=== PATIENT | female | born 1975 | race American Indian/Alaskan Native ===

== ENCOUNTER 2016-10-08 18:53 | Emergency (ER) | payer OTHER ==
[2016-10-08] MEDS ORDERED: ATROVENT IH ONE ×2 (19:10→22:20)
[2016-10-08] MEDS ORDERED: PROVENTIL IH ONE ×2 (19:10→22:20)
[2016-10-08 19:49] LABS: Basophils % (Auto) 0.8 % (0.0-1.8); Eosinophils % (Auto) 0.3 % (0.0-4.3); Hematocrit 42.3 % (30.3-42.9); Hemoglobin 14.4 gm/dl (10.1-14.3); Mean Corpuscular HGB Conc 34 % (30-34); Mean Corpuscular Hemoglobin 32 pg (28-32); Mean Corpuscular Volume 93 fl (79-97); Platelet Count 190 K/mm3 (140-440); Red Blood Count 4.55 M/mm3 (3.65-5.03); Red Cell Distribution Width 13.3 % (13.2-15.2); White Blood Count 5.8 K/mm3 (4.5-11.0)
[2016-10-08 20:01] LABS: BUN/Creatinine Ratio 7.14; Blood Urea Nitrogen 5 mg/dL (7-17); Calcium 9.5 mg/dL (8.4-10.2); Carbon Dioxide 26 mmol/L (22-30); Chloride 99.5 mmol/L (98-107); Glucose 111 mg/dL (65-100); Potassium 4.1 mmol/L (3.6-5.0); Sodium 141 mmol/L (137-145)
[2016-10-08 20:34] LABS: Anion Gap 20 mmol/L
[2016-10-08] MEDS ORDERED: NACL 0.9% 1000 ML 1,000 ML IV ONE (22:20)
[2016-10-08] MEDS ORDERED: TYLENOL PO ONE (22:20)
[2016-10-08] MEDS ORDERED: TORADOL IV ONE (22:20)
[2016-10-08] MEDS ORDERED: ZOFRAN IV ONE (22:20)
--- NOTE | 2016-10-08 22:22 | Emergency Department Report ---
ED General Adult HPI - General Chief complaint: Dyspnea/Respdistress Stated complaint: ASTHMA Time Seen by Provider: 10/08/16 22:07 Source: patient, RN notes reviewed, old records reviewed Mode of arrival: Ambulatory Limitations: No Limitations - History of Present Illness Initial comments: This is a 41-year-old female, previously unknown to me. Has a past medical history of asthma and bronchitis. Presents to the ER with body aches, malaise, subjective fever, cough, headache, nausea, "I just don't feel well." Patient states symptoms have been present for the past day or so. Positive sick contacts at work. Positive sore throat. Positive mild headache. Reports getting her flu shot this year. Symptoms are constant. They worse with physical exertion. They decrease with rest. -: Gradual Location: back, left, right, upper extremity, lower extremity Severity scale (0 -10): 10 Quality: aching Consistency: constant Improves with: rest Worsens with: movement Associated Symptoms: cough, fever/chills, headaches, loss of appetite, malaise, weakness - Related Data Previous Rx's Medication Instructions Recorded Last Taken Type Lisinopril [Zestril TAB] 20 mg PO QDAY #30 tablet 03/05/16 Unknown Rx predniSONE [Deltasone] 3 tab PO QDAY #15 tab 03/05/16 Unknown Rx ALBUTEROL Inhaler [ProAir HFA 2 puff IH QID PRN #1 inha 03/26/16 Unknown Rx Inhaler] Albuterol *Only Ed* [Proventil 2.5 mg IH Q4H PRN #25 nebu 03/26/16 Unknown Rx 0.5% NEBS] Azithromycin [Zithromax TAB] 500 mg PO QDAY #3 tablet 03/26/16 Unknown Rx Prednisone [predniSONE 10 mg 10 mg PO .TAPER #1 tab.ds.pk 03/26/16 Unknown Rx (6-Day Pack, 21 Tabs)] guaiFENesin/CODEINE [Robitussin AC] 5 ml PO Q4HR PRN #100 oral.liqd 03/26/16 Unknown Rx hydrOXYzine HCL [Atarax] 25 mg PO Q6HR PRN #20 tablet 03/26/16 Unknown Rx Albuterol Sulfate [Proair 90 mcg IH Q4HR PRN #2 aer.pow.ba 10/09/16 Unknown Rx Respiclick] Benzonatate [Tessalon Perles] 100 mg PO Q8HR PRN #30 capsule 10/09/16 Unknown Rx Fluticasone [Flonase] 1 spray NS QDAY #1 bottle 10/09/16 Unknown Rx Ketorolac [Toradol] 10 mg PO Q6H PRN #20 tablet 10/09/16 Unknown Rx Ondansetron [Zofran Odt] 4 mg PO QID PRN #20 tab.rapdis 10/09/16 Unknown Rx Allergies Allergy/AdvReac Type Severity Reaction Status Date / Time No Known Allergies Allergy Verified 07/31/15 18:39 ED Review of Systems ROS: Stated complaint: ASTHMA Other details as noted in HPI Constitutional: fever, malaise, weakness Eyes: denies: vision change ENT: throat pain, congestion Respiratory: cough Cardiovascular: as per HPI Gastrointestinal: nausea Genitourinary: denies: dysuria Musculoskeletal: back pain, arthralgia, myalgia Skin: denies: lesions Neurological: weakness Psychiatric: anxiety ED Past Medical Hx - Past Medical History Hx Hypertension: Yes Hx Heart Attack/AMI: No Hx Congestive Heart Failure: No Hx Diabetes: No Hx Deep Vein Thrombosis: No Hx Pulmonary Embolism: No Hx GERD: No Hx Liver Disease: No Hx Renal Disease: No Hx Sickle Cell Disease: No Hx Arthritis: No Hx Seizures: No Hx Kidney Stones: No Hx Asthma: Yes Hx COPD: No Hx Tuberculosis: No Hx Dementia: No Hx HIV: No - Surgical History Hx Coronary Stent: No Hx Pacemaker: No Hx Internal Defibrillator: No Hx Appendectomy: No Additional Surgical History: x 2. hysterectomy. D&C - Social History Smoking Status: Never Smoker Substance Use Type: None - Medications Home Medications: Home Medications Medication Instructions Recorded Confirmed Last Taken Type Lisinopril [Zestril TAB] 20 mg PO QDAY #30 tablet 03/05/16 Unknown Rx predniSONE [Deltasone] 3 tab PO QDAY #15 tab 03/05/16 Unknown Rx ALBUTEROL Inhaler [ProAir HFA 2 puff IH QID PRN #1 inha 03/26/16 Unknown Rx Inhaler] Albuterol *Only Ed* [Proventil 2.5 mg IH Q4H PRN #25 nebu 03/26/16 Unknown Rx 0.5% NEBS] Azithromycin [Zithromax TAB] 500 mg PO QDAY #3 tablet 03/26/16 Unknown Rx Prednisone [predniSONE 10 mg 10 mg PO .TAPER #1 tab.ds.pk 03/26/16 Unknown Rx (6-Day Pack, 21 Tabs)] guaiFENesin/CODEINE [Robitussin AC] 5 ml PO Q4HR PRN #100 oral.liqd 03/26/16 Unknown Rx hydrOXYzine HCL [Atarax] 25 mg PO Q6HR PRN #20 tablet 03/26/16 Unknown Rx Albuterol Sulfate [Proair 90 mcg IH Q4HR PRN #2 aer.pow.ba 10/09/16 Unknown Rx Respiclick] Benzonatate [Tessalon Perles] 100 mg PO Q8HR PRN #30 capsule 10/09/16 Unknown Rx Fluticasone [Flonase] 1 spray NS QDAY #1 bottle 10/09/16 Unknown Rx Ketorolac [Toradol] 10 mg PO Q6H PRN #20 tablet 10/09/16 Unknown Rx Ondansetron [Zofran Odt] 4 mg PO QID PRN #20 tab.rapdis 10/09/16 Unknown Rx ED Physical Exam - General Limitations: No Limitations General appearance: alert, in no apparent distress - Head Head exam: Present: atraumatic, normocephalic - Eye Eye exam: Present: normal appearance, PERRL, EOMI. Absent: nystagmus - ENT ENT exam: Present: normal exam, normal orophraynx, mucous membranes moist, normal external ear exam - Neck Neck exam: Present: normal inspection, full ROM. Absent: tenderness, meningismus - Respiratory Respiratory exam: Present: normal lung sounds bilaterally. Absent: respiratory distress, wheezes, rales, rhonchi, stridor, chest wall tenderness - Cardiovascular Cardiovascular Exam: Present: regular rate, normal rhythm, normal heart sounds. Absent: bradycardia, tachycardia, irregular rhythm, systolic murmur, diastolic murmur, rubs, gallop - GI/Abdominal GI/Abdominal exam: Present: soft, normal bowel sounds. Absent: distended, tenderness, guarding, rebound, rigid, pulsatile mass - Extremities Exam Extremities exam: Present: normal inspection, full ROM, normal capillary refill. Absent: tenderness, pedal edema, joint swelling, calf tenderness - Back Exam Back exam: Present: normal inspection, full ROM. Absent: tenderness, CVA tenderness (R), CVA tenderness (L), muscle spasm, paraspinal tenderness, vertebral tenderness - Neurological Exam Neurological exam: Present: alert, oriented X3, normal gait, other (Extraocular movements intact. Tongue midline. No facial droop. Facial sensation intact to light touch in the V1, V2, V3 distribution bilaterally. 5 and 5 strength in 4 extremities.. Sensation is intact to light touch in 4 extremities.). Absent : motor sensory deficit - Psychiatric Psychiatric exam: Present: normal affect, normal mood - Skin Skin exam: Present: warm, dry, intact, normal color. Absent: rash ED Course Vital Signs 10/08/16 10/08/16 10/08/16 19:03 19:18 19:51 Temperature 99.9 F H Pulse Rate 92 H Pulse Rate [ 96 H 98 H Anterior Bilateral Throughout] Respiratory 26 H Rate Respiratory 18 18 Rate [Anterior Bilateral Throughout] Blood Pressure 158/109 Blood Pressure [Right] O2 Sat by Pulse 100 Oximetry 10/08/16 10/08/16 21:07 23:23 Temperature 98.4 F Pulse Rate 102 H Pulse Rate [ 86 Anterior Bilateral Throughout] Respiratory 18 Rate Respiratory 20 Rate [Anterior Bilateral Throughout] Blood Pressure Blood Pressure 144/96 [Right] O2 Sat by Pulse 99 Oximetry - Reevaluation(s) Reevaluation #1: 10/08/16 23:13 Differential diagnosis: Bronchitis, viral syndrome, influenza, influenza-like illness, pneumonia Assessment and plan: 41-year-old female with probable influenza-like illness. Low-grade temperature, no obvious wheezing, saturating well. We will treat her symptomatically. I don't believe her symptoms are consistent with acute coronary syndrome. Symptoms have been present for almost 24 hours. We will check a flu swab on her give her albuterol, pain medication, nausea medication, fluids, and reassess. Reevaluation #2: 10/09/16 01:01 Feels improved. Sleeping comfortably. Breath sounds remain clear to auscultation. Able to ambulate without desaturation. Mild tachycardia appreciated. Most likely secondary to albuterol. Patient will be discharged. influenza swab is negative. ED Medical Decision Making - Lab Data Result diagrams: 10/08/16 19:30 10/08/16 19:30 - EKG Data 10/08/16 23:14 Normal sinus, 87 bpm, normal axis, normal intervals, not morphologically consistent with STEMI. Borderline left ventricular hypertrophy. - Radiology Data Radiology results: image reviewed interpreted by me: X-ray chest negative for acute disease. Critical care attestation.: If time is entered above; I have spent that time in minutes in the direct care of this critically ill patient, excluding procedure time. ED Disposition Clinical Impression: Influenza-like illness Disposition: DISCHARGED TO HOME OR SELFCARE Is pt being admited?: No Does the pt Need Aspirin: No Condition: Stable Instructions: Acute Bronchitis (ED) Additional Instructions: Symptoms most likely coming from a cold, bronchitis/influenza-like illness. Take a breathing medication, pain medication, nausea medication, cough medication as directed. Symptoms may last for a few days to a few weeks. Follow-up with a primary care physician within the week. Return to the ER right away with severe pain, severe shortness of breath, intractable nausea or vomiting, inability to tolerate liquid feeds. Dr. Mclean is a local primary care doctor. Prescriptions: Albuterol Sulfate [Proair Respiclick] 90 mcg IH Q4HR PRN #2 aer.pow.ba PRN Reason: Wheezing Benzonatate [Tessalon Perles] 100 mg PO Q8HR PRN #30 capsule PRN Reason: Cough Fluticasone [Flonase] 1 spray NS QDAY #1 bottle Ketorolac [Toradol] 10 mg PO Q6H PRN #20 tablet PRN Reason: Pain Ondansetron [Zofran Odt] 4 mg PO QID PRN #20 tab.rapdis PRN Reason: Nausea Referrals: PRIMARY MD GELACIO [Primary Care Provider] - 3-5 Days TOMA MCLEAN MD [Staff Physician] - 3-5 Days [facility] [Provider Group] - 3-5 Days
[2016-10-09 02:20] VITALS: BP 136/84
--- NOTE | 2016-10-09 08:49 | XRay Report ---
CHEST 2 VIEWS INDICATION: Shortness of breath. COMPARISON: 03/26/2016 FINDINGS: PA and lateral chest radiographs redemonstrate normal cardiomediastinal silhouette, clear lungs and possible right sided old healed rib fractures/pleural thickening. Demineralized bones with few thoracic spine degenerative changes also again seen. CONCLUSION: No acute disease in the chest, stable. Thank you for the opportunity to participate in this patient's care.
== END 2016-10-09 02:25 | disposition home or self-care (01) ==
LOC: ED 18:53
DX: J11.1 Influenza due to unidentified influenza virus with other respiratory manifestations (principal); I10 Essential (primary) hypertension; J45.909 Unspecified asthma, uncomplicated
CPT/HCPCS: 36415; 71020; 80048; 82550; 84484; 85025; 87400; 93005; 93010; 94640; 96361; 96374; 96375; 99284; J1885; J2405; J2930; J7030

== ENCOUNTER 2017-04-24 21:12 | Inpatient (IN) | payer SELFPAY ==
[2017-04-24] MEDS ORDERED: PROVENTIL IH ONE ×2 (21:19→22:38)
[2017-04-24] MEDS ORDERED: ATROVENT IH ONE (22:38)
[2017-04-24] MEDS ORDERED: MAGNESIUM SULFATE 2GM/50ML 2 GM/50 ML BAG IV ONE (22:38)
--- NOTE | 2017-04-24 22:44 | Emergency Department Report ---
HPI - General Chief Complaint: Adult Asthma Time Seen by Provider: 04/24/17 22:33 - HPI HPI: Room 2 The patient is a 42-year-old female presenting with a chief complaint of shortness of breath. The patient states that 03:00 she developed shortness of breath consistent with her asthma. Patient states she was wheezing and occasional cough occasional productive yellow sputum. Patient denies fever or chest pain. Patient came to the ED by private vehicle. Patient was placed on CPAP upon arrival to the ED states she feels slightly improved but is still short of breath. Of note the patient states she was admitted a few weeks ago for asthma exacerbation Location: Lungs Duration: Constant since 03:00 Quality: Wheezing Severity: Moderate Modifying factors: [see above] Context: [see above] Mode of transportation: Unknown ED Past Medical Hx - Past Medical History Previous Medical History?: Yes Hx Hypertension: Yes Hx Asthma: Yes - Surgical History Past Surgical History?: Yes Additional Surgical History: x 2. hysterectomy. D&C - Family History Family history: no significant - Social History Smoking Status: Never Smoker Substance Use Type: Alcohol (occasional) - Medications Home Medications: Home Medications Medication Instructions Recorded Confirmed Last Taken Type Lisinopril [Zestril TAB] 20 mg PO QDAY #30 tablet 03/05/16 Unknown Rx predniSONE [Deltasone] 3 tab PO QDAY #15 tab 03/05/16 Unknown Rx ALBUTEROL Inhaler [ProAir HFA 2 puff IH QID PRN #1 inha 03/26/16 Unknown Rx Inhaler] Albuterol *Only Ed* [Proventil 2.5 mg IH Q4H PRN #25 nebu 03/26/16 Unknown Rx 0.5% NEBS] Azithromycin [Zithromax TAB] 500 mg PO QDAY #3 tablet 03/26/16 Unknown Rx Prednisone [predniSONE 10 mg 10 mg PO .TAPER #1 tab.ds.pk 03/26/16 Unknown Rx (6-Day Pack, 21 Tabs)] guaiFENesin/CODEINE [Robitussin AC] 5 ml PO Q4HR PRN #100 oral.liqd 03/26/16 Unknown Rx hydrOXYzine HCL [Atarax] 25 mg PO Q6HR PRN #20 tablet 03/26/16 Unknown Rx Albuterol Sulfate [Proair 90 mcg IH Q4HR PRN #2 aer.pow.ba 10/09/16 Unknown Rx Respiclick] Benzonatate [Tessalon Perles] 100 mg PO Q8HR PRN #30 capsule 10/09/16 Unknown Rx Fluticasone [Flonase] 1 spray NS QDAY #1 bottle 10/09/16 Unknown Rx Ketorolac [Toradol] 10 mg PO Q6H PRN #20 tablet 10/09/16 Unknown Rx Ondansetron [Zofran Odt] 4 mg PO QID PRN #20 tab.rapdis 10/09/16 Unknown Rx ED Review of Systems ROS: Stated complaint: MAGDALENO Other details as noted in HPI Comment: All other systems reviewed and negative Constitutional: denies: chills, fever Eyes: denies: eye pain, eye discharge, vision change ENT: denies: ear pain, throat pain Respiratory: cough, shortness of breath, wheezing Cardiovascular: denies: chest pain, palpitations Endocrine: no symptoms reported Gastrointestinal: denies: abdominal pain, nausea, diarrhea Genitourinary: denies: urgency, dysuria, discharge Musculoskeletal: denies: back pain, joint swelling, arthralgia Skin: denies: rash, lesions Neurological: denies: headache, weakness, paresthesias Psychiatric: denies: anxiety, depression Hematological/Lymphatic: denies: easy bleeding, easy bruising Physical Exam - Physical Exam Vital Signs: Vital Signs 04/24/17 04/24/17 04/24/17 21:16 21:26 21:31 Temperature 98.5 F Pulse Rate 97 H 98 H 98 H Respiratory 22 30 H Rate Blood Pressure 154/91 144/92 O2 Sat by Pulse 94 99 Oximetry 04/24/17 04/24/17 21:45 22:00 Temperature Pulse Rate 93 H 88 Respiratory 13 22 Rate Blood Pressure 144/92 140/98 O2 Sat by Pulse 99 96 Oximetry Physical Exam: GENERAL: The patient is well-developed well-nourished female sitting on stretcher with BiPAP in place not appearing to be in acute distress. [] HEENT: Normocephalic. Atraumatic. Extraocular motions are intact. Patient has moist mucous membranes. NECK: Supple. Trachea midline CHEST/LUNGS: Diffuse wheezing. HEART/CARDIOVASCULAR: Regular. There is no tachycardia. There is no gallop rub or murmur. ABDOMEN: Abdomen is soft, nontender. Patient has normal bowel sounds. There is no abdominal distention. SKIN: There is no rash. There is no diaphoresis. NEURO: The patient is awake, alert, and oriented. The patient is cooperative. The patient has normal speech MUSCULOSKELETAL: There is no evidence of acute injury. ED Course Vital Signs 04/24/17 04/24/17 04/24/17 21:16 21:26 21:31 Temperature 98.5 F Pulse Rate 97 H 98 H 98 H Respiratory 22 30 H Rate Blood Pressure 154/91 144/92 O2 Sat by Pulse 94 99 Oximetry 04/24/17 04/24/17 21:45 22:00 Temperature Pulse Rate 93 H 88 Respiratory 13 22 Rate Blood Pressure 144/92 140/98 O2 Sat by Pulse 99 96 Oximetry - Reevaluation(s) Reevaluation #1: 04/24/17 23:59 Patient improved but still wheezing. Will admit the patient to the hospital ED Medical Decision Making - Lab Data Result diagrams: 04/24/17 23:11 04/24/17 23:11 Laboratory Tests 04/24/17 04/24/17 23:11 23:11 WBC 9.0 RBC 4.26 Hgb 13.4 Hct 40.4 MCV 95 MCH 31 MCHC 33 RDW 13.6 Plt Count 218 Lymph % (Auto) 15.2 Gilchrist % (Auto) 7.6 H Eos % (Auto) 2.8 Baso % (Auto) 0.5 Lymph # 1.4 Gilchrist # 0.7 Eos # 0.3 Baso # 0.0 Seg Neutrophils % 73.9 H Seg Neutrophils # 6.7 Sodium 140 Potassium 3.5 L Chloride 102.2 Carbon Dioxide 23 Anion Gap 18 BUN 11 Creatinine 0.6 L Estimated GFR > 60 BUN/Creatinine Ratio 18.33 Glucose 118 H Calcium 9.1 - Radiology Data Radiology results: image reviewed (chest x-ray) interpreted by me: Chest x-ray-no focal infiltrates, no pneumothorax - Differential Diagnosis acute asthma exacerbation, pneumonia Critical care attestation.: If time is entered above; I have spent that time in minutes in the direct care of this critically ill patient, excluding procedure time. ED Disposition Clinical Impression: Acute asthma exacerbation, Shortness of breath Disposition: OP ADMIT IP TO THIS HOSP Is pt being admited?: Yes Does the pt Need Aspirin: No Condition: Fair Referrals: PRIMARY CARE, [Primary Care Provider] - 3-5 Days Time of Disposition: 00:00 (hospitalist paged)
[2017-04-24 23:31] LABS: Basophils % (Auto) 0.5 % (0.0-1.8); Eosinophils % (Auto) 2.8 % (0.0-4.3); Hematocrit 40.4 % (30.3-42.9); Hemoglobin 13.4 gm/dl (10.1-14.3); Mean Corpuscular HGB Conc 33 % (30-34); Mean Corpuscular Hemoglobin 31 pg (28-32); Mean Corpuscular Volume 95 fl (79-97); Platelet Count 218 K/mm3 (140-440); Red Blood Count 4.26 M/mm3 (3.65-5.03); Red Cell Distribution Width 13.6 % (13.2-15.2)
[2017-04-24 23:51] LABS: Anion Gap 18 mmol/L; BUN/Creatinine Ratio 18.33; Blood Urea Nitrogen 11 mg/dL (7-17); Calcium 9.1 mg/dL (8.4-10.2); Carbon Dioxide 23 mmol/L (22-30); Chloride 102.2 mmol/L (98-107); Glucose 118 mg/dL (65-100); Potassium 3.5 mmol/L (3.6-5.0); Sodium 140 mmol/L (137-145)
[2017-04-25] MEDS ORDERED: ROBITUSSIN DM PO PRN (00:54)
[2017-04-25] MEDS ORDERED: ZOFRAN IV PRN (00:54)
[2017-04-25] MEDS ORDERED: MORPHINE IV PRN (00:56)
[2017-04-25] MEDS ORDERED: TYLENOL PO PRN (00:58)
[2017-04-25] MEDS ORDERED: ATARAX PO PRN (00:59)
[2017-04-25] MEDS ORDERED: TESSALON PERLES PO PRN (00:59)
[2017-04-25] MEDS ORDERED: NON-FORMULARY (Prednisone [Prednisone 10 Mg (6-Day Pack, 21 Tabs)] 10 MG) PO SCH (01:00)
[2017-04-25] MEDS ORDERED: K-DUR PO ONE (05:38)
--- NOTE | 2017-04-25 06:50 | History and Physical Report ---
CHIEF COMPLAINT: Difficulty in breathing. HISTORY OF PRESENT ILLNESS: The patient is a 42-year-old female with complaint of shortness of breath going on for hours prior to presentation. The patient said she has been wheezing and coughing with cough productive of yellow sputum, but denied history of chest pain and denied history of fever or chills and there was also no history of dizziness, nausea or vomiting. The patient arrived at the Emergency Room through a private vehicle with wheezing and shortness of breath going on and was started on CPAP with some improvement. PAST MEDICAL HISTORY: Pertinent for hypertension and asthma. PAST SURGICAL HISTORY: Pertinent for hysterectomy, , D and C. FAMILY HISTORY: Noncontributory. SOCIAL HISTORY: The patient does not smoke, does not use illicit drugs. Drinks alcohol occasionally. MEDICATIONS: The patient is on lisinopril 20 mg by mouth daily, prednisone 3 tabs by mouth everyday, also the patient is on ProAir metered-dose inhaler 2 puffs q.i.d. as needed for shortness of breath and albuterol, Proventil nebulizer every 4 hours. The patient is on Zithromax 500 mg by mouth daily, Robitussin-AC 5 mL every 4 hours as needed for cough. Also, the patient is on Atarax 25 mg by mouth every 6 hours for anxiety and on Tessalon Perles 100 mg by mouth every 8 hours. The patient is also on fluticasone, Flonase 1 spray nasally daily, Toradol 10 mg by mouth every 6 hours as needed for pain, Zofran 4 mg 4 times a day as needed for nausea and vomiting. ALLERGIES: There are no known drug allergies. REVIEW OF SYSTEMS: CONSTITUTIONAL: There is no fever, no chills, no diaphoresis. HEENT: There is no headache or sore throat. CARDIOVASCULAR: There is no chest pain, orthopnea. RESPIRATORY: Shortness of breath present. Wheezing present. Cough present. GASTROINTESTINAL SYSTEM: There is no nausea, no vomiting, no abdominal pain, diarrhea or constipation. NEUROLOGICAL: There is no numbness. No dizziness and no altered mental status. MUSCULOSKELETAL: There is no joint pain or swelling. DERMATOLOGICAL: There is no skin rash or itching. GENITOURINARY: There is no dysuria, hematuria, or flank pain. Rest of system review is normal. PHYSICAL EXAMINATION: GENERAL: At the time of exam, the patient was found to be alert and oriented x 3 and in mild to moderate distress due to shortness of breath and wheezing. VITAL SIGNS: Shows temperature of 98.6 degrees Fahrenheit, pulse of 83, respirations 20, blood pressure 157/103, O2 sat of 94-100% while on BiPAP. HEENT: Showed pupils to be equal, round, reactive to light and accommodating. Extraocular muscles are intact. NECK: Supple with no JVD or carotid bruit. CARDIOVASCULAR SYSTEM: Show first and second heart sounds with no gallops or murmur. RESPIRATORY: Show reduced air entry on both sides of the lung with expiratory wheezing, but no use of accessory respiratory muscles. GASTROINTESTINAL SYSTEM: Show abdomen to be full, soft, nontender with no organomegaly or rigidity. NEUROLOGIC: Shows no focal deficit. MUSCULOSKELETAL: Show no joint swelling or tenderness. DERMATOLOGICAL SYSTEM: Show no skin rash. GENITOURINARY: Showing no costovertebral angle tenderness. PERTINENT LABORATORY AND IMAGING STUDIES: The patient had a chest x-ray done that shows no acute cardiopulmonary lesion. Lab results, the patient had CBC done that came back unremarkable except for elevated CBC differential of 73.9%. Chemistry show normal sodium, low potassium of 3.5, unremarkable renal function. DIAGNOSES: 1. Asthma exacerbation. 2. Hypokalemia. PLAN: The patient will be admitted to medical floor and will be on albuterol nebulizer q. 4 hours and will be on IV Levaquin 750 mg daily. The patient will also be on IV Solu-Medrol 60 mg q. 6 hours and will have one-time dose of morphine 2 mg for anxiety. The patient will be on IV Zofran 4 mg every 8 hours for nausea and vomiting and will be on Tylenol 650 mg every 4 hours for fever, headache. DVT prophylaxis will be through sequential compressive device. The patient will have one-dose of KCl 40 mEq by mouth because of slight decrease in potassium level and the patient's home medications will be reconciled and started accordingly. JOB# [id number] OCN/NTS SERENITYD
--- NOTE | 2017-04-25 08:36 | XRay Report ---
PORTABLE CHEST INDICATION: Shortness of breath. COMPARISON: 10/08/2016 FINDINGS: Portable, frontal chest radiograph demonstrate stable cardiomediastinal silhouette. Subtle left atrial enlargement or pulmonary arterial hypertension not entirely excluded. Approximately 3.7 cm nonspecific density/fullness about the right cardiophrenic angle may represent a prominent fat-pad or pericardial cyst, also somewhat present on July 2015 CXR. Clear lungs without pleural effusions or CHF. EKG leads. Stable bones, including few old right mid rib deformities laterally. CONCLUSION: No acute chest process with few incidental findings, as above. Thank you for the opportunity to participate in this patient's care.
[2017-04-25] MEDS ORDERED: DELTASONE PO SCH (10:00)
[2017-04-25] MEDS: ZESTRIL PO SCH (11:01)
[2017-04-25] MEDS: LEVAQUIN 750MG/150ML 750 MG/150 ML BAG IV SCH (11:01)
[2017-04-25] MEDS: HEPARIN SUB-Q SCH ×2 (11:02→21:21)
[2017-04-25] MEDS: PROVENTIL IH PRN ×2 (11:05→21:29)
[2017-04-25] MEDS ORDERED: Fluarix Quad 2017-2018(36 MOS+) IM ONE (12:00)
[2017-04-25] MEDS: APRESOLINE IV PRN ×2 (14:47→21:22)
--- NOTE | 2017-04-26 09:18 | Admit Criteria Form ---
Admission Criteria Documentation: ASTHMA Clinical Indications for Admission to Inpatient Care ([place]/check or initial the applicable condition/criteria) Admission is indicated for ANY ONE of the following (1)(2)(3)(4): [ ]I. Ventilatory support required [ ]II. Peak expiratory flow rate less than 25% of predicted or personal best before treatment [ ]III. Peak expiratory flow rate less than 40% of predicted or personal best after treatment [ ]IV. Peak expiratory flow rate between 40% and 60% of predicted or personal best after treatment, and ANY ONE of the following: [ ]a) History of asthma requiring intubation [ ]b) Hospitalization for asthma within the past year [ ]c) Current or recent use of oral corticosteroids for asthma [ ]d) Use of more than 1 canister of inhaled beta2-agonist in past month [ ]e) Exacerbation due to allergic reaction to food [ ]f) Inadequate access to medical care or medications [ ]g) Adherence to post-discharge asthma regimen cannot be assured (eg, psychosocial problems, poor adherence, no available follow-up care) [ ]V. Hypoxemia [ ]. PaCO2 elevation from baseline by 2 mm Hg (0.27 kPa) or greater [ ]VII. Cyanosis [ ]VIII. Silent chest (absent or markedly diminished breath sounds) [ ]IX. Cardiac dysrhythmia (eg, Bradycardia) [ ]X. Hemodynamic instability [ ]XI. Altered mental status [ ]XII. Radiographic evidence of complication requiring inpatient treatment (eg, pneumonia, pneumothorax) [X]XIII. Inpatient admission required[A] rather than observation care because of ANY ONE of the following: [X]a) Respiratory finding that is severe or persistent (eg, dyspnea, Tachypnea, accessory muscle use) [ ]b) Other condition, treatment, or monitoring requiring inpatient admission Extended stay beyond goal length of stay may be needed for (1)(25)(27): [ ]a) Severe respiratory distress or respiratory failure (22)(23)(28)(29) [ ]b) Secondary causes and complications (24) [ ]c) Status asthmaticus [ ]d) Chronic obstructive asthma (eg, asthma-COPD overlap syndrome) (30) [ ]e) Older patients (65 years or older) (28) [ ]f) Slow resolution [ ]g) Clinically significant exacerbation of comorbidities (e.g., congestive heart failure,atrial fibrillation) The original [facility] [employer] content created by [facility] has been revised. The portions of the content which have been revised are identified through the use of italic text or in bold, and [facility] has neither reviewed nor approved the modified material. All other unmodified content is copyright [facility] Please see references footnoted in the original [facility] edition 2017 Admission Criteria Met: Yes
[2017-04-26 10:00] VITALS: BP 126/78
[2017-04-26] MEDS: LEVAQUIN 750MG/150ML 750 MG/150 ML BAG IV SCH (10:03)
[2017-04-26] MEDS: ZESTRIL PO SCH (10:04)
[2017-04-26] MEDS: HEPARIN SUB-Q SCH (10:05)
--- NOTE | 2017-04-26 10:58 | Discharge Summary ---
Providers - Providers Date of Admission: 04/25/17 00:00 Date of discharge: 04/26/17 Attending physician: OLIVIA MCGEE Primary care physician: IRENE BRIZUELA MD Hospitalization Condition: Fair Exam - Constitutional Vitals: Temp Pulse Resp BP Pulse Ox 98.4 F 88 18 126/78 98 04/26/17 08:00 04/26/17 08:00 04/26/17 08:00 04/26/17 08:00 04/26/17 09:51 Plan Activity: advance as tolerated Diet: low cholesterol, low salt Follow up with: IRENE BRIZUELA MD [Primary Care Provider] - 3-5 Days DIVYA BARILLAS MD [Staff Physician] - 7 Days Prescriptions: ALBUTEROL Inhaler [ProAir HFA Inhaler] 2 puff IH QID PRN #1 inha PRN Reason: Shortness Of Breath Albuterol Sulfate [Proair Respiclick] 90 mcg IH Q4HR PRN #2 aer.pow.ba PRN Reason: Wheezing Azithromycin [Zithromax TAB] 500 mg PO QDAY #3 tablet Benzonatate [Tessalon Perles] 100 mg PO Q8HR PRN #30 capsule PRN Reason: Cough Fluticasone [Flonase] 1 spray NS QDAY #1 bottle guaiFENesin/CODEINE [Robitussin AC] 5 ml PO Q4HR PRN #30 oral.liqd PRN Reason: Cough hydrOXYzine HCL [Atarax] 25 mg PO Q6HR PRN #20 tablet PRN Reason: Itching Lisinopril [Zestril TAB] 20 mg PO QDAY #30 tablet predniSONE [Deltasone] 3 tab PO QDAY #30 tab
[2017-04-27] MEDS ORDERED: LEVAQUIN PO SCH (10:00)
== END 2017-04-26 16:35 | disposition home or self-care (01) | DRG 203 ==
LOC: ED 21:12 → 3A 04-25
PROVIDERS: ADMIT Internal Medicine; ATTEND Internal Medicine
DX: J45.901 Unspecified asthma with (acute) exacerbation (principal); E87.6 Hypokalemia; I10 Essential (primary) hypertension; Z98.891 History of uterine scar from previous surgery; Z90.710 Acquired absence of both cervix and uterus
CPT/HCPCS: 36415; 71010; 80048; 85025; 90686; 94640; 94660; 94760; 96365; 96375; J0360; J1644; J1956; J2930; J3475